=== PATIENT | male | born 1975 | race Hispanic/Latino ===

== ENCOUNTER 2018-11-16 14:03 | Emergency (ER) | payer OTHER ==
[2018-11-16] MEDS ORDERED: ACETAMINOPHEN EXTRA STRENGTH 500 MG TABLET ONE (14:19)
[2018-11-16] MEDS ORDERED: DEXAMETHASONE SOD PHOSPHATE 10MG/ML 1ML VIAL ONE (15:50)
== END 2018-11-16 16:40 | disposition home or self-care (01) ==
LOC: EDH 14:03
DX: J02.8 Acute pharyngitis due to other specified organisms (principal)
CPT/HCPCS: 87804 ×2; 87880; 96372; 99284; J1100